=== PATIENT | male | born 1990 | race African-American/Black ===

== ENCOUNTER 2022-03-18 14:00 | Emergency (ER) | payer MEDICAID ==
[~2022-03-18] VITALS: Ht 177.8 cm; Wt 78.0 kg
[2022-03-18 14:02] VITALS: BP 126/80
== END 2022-03-18 18:45 | disposition home or self-care (01) ==
LOC: ER 14:04
DX: R06.02 Shortness of breath (principal); J45.909 Unspecified asthma, uncomplicated; F31.9 Bipolar disorder, unspecified; Z87.891 Personal history of nicotine dependence
CPT/HCPCS: 71046; 93005; 99283